=== PATIENT | male | born 1960 | race Caucasian/White ===

== ENCOUNTER → 2019-10-27 11:32 | Outpatient (BNVA) | payer MEDICARE, SELFPAY | PROVIDERS: Family Provider Nurse Practitioner; PCP Nurse Practitioner; Visit Provider Nurse Practitioner Family | DX: M41.87 Other forms of scoliosis, lumbosacral region (principal); J98.11 Atelectasis | CPT/HCPCS: 71046; 72100 ==

== ENCOUNTER → 2019-12-21 15:21 | Outpatient (BNVA) | payer MEDICARE, SELFPAY | PROVIDERS: Family Provider Nurse Practitioner; PCP Nurse Practitioner; Visit Provider Nurse Practitioner Family | DX: I10 Essential (primary) hypertension (principal); E78.5 Hyperlipidemia, unspecified; R60.0 Localized edema; K59.04 Chronic idiopathic constipation; E03.9 Hypothyroidism, unspecified; M19.90 Unspecified osteoarthritis, unspecified site; K21.9 Gastro-esophageal reflux disease without esophagitis | CPT/HCPCS: 80053; 80061; 84443; 85025 ==

== ENCOUNTER → 2020-01-04 11:29 | Outpatient (BNVA) | payer MEDICARE, SELFPAY | PROVIDERS: Family Provider Nurse Practitioner; PCP Nurse Practitioner; Referring Provider Nurse Practitioner Family; Visit Provider Internal Medicine Cardiovascular Disease | DX: R07.89 Other chest pain (principal); R06.02 Shortness of breath; I35.0 Nonrheumatic aortic (valve) stenosis; R60.0 Localized edema; I50.33 Acute on chronic diastolic (congestive) heart failure; E78.5 Hyperlipidemia, unspecified; E03.9 Hypothyroidism, unspecified; I63.89 Other cerebral infarction; I11.0 Hypertensive heart disease with heart failure | CPT/HCPCS: 80048; 83880 ==

== ENCOUNTER 2020-03-02 10:13 | Outpatient (CLI) | payer MEDICARE, SELFPAY ==
--- NOTE | 2020-03-02 10:23 | USCV_ITS ---
Jaime Tan Age: 59 Gender: M : 1960 Exam Date: 03/02/2020 11:05 Ordering Phys: Gerald Marrero MD ([email or web address]) Technologist: Joaquina Capellan Exam Location: [facility] [place] Indication: BP: / HR: 71 Rhythm: Sinus Technical Quality: Adequate MEASUREMENTS (Male / Female) Normal Values 2D ECHO LV Diastolic Diameter PLAX 6.0 cm 4.2 - 5.9 / 3.9 - 5.3 cm LV Systolic Diameter PLAX 4.4 cm LV Chamber Size 3.4 cm IVS Diastolic Thickness 1.3 cm 0.6 - 1.0 / 0.6 - 0.9 cm IVS Systolic Thickness 1.7 cm LVPW Diastolic Thickness 1.1 cm 0.6 - 1.0 / 0.6 - 0.9 cm LVPW Systolic Thickness 1.2 cm RV Chamber Size 2.6 cm LVOT Diameter 2.0 cm LV Ejection Fraction 2D Teich 51.4 % LV Ejection Fraction MOD 2C 50.4 % LV Ejection Fraction 2C AL 51.6 % LA Diameter 3.6 cm LA Width 2.7 cm LA Height 5.1 cm RA Width 3.3 cm RA Height 4.1 cm Aorta at Sinotubular Diameter 3.2 cm M-MODE LV Diastolic Diameter MM 6.0 cm 4.2 - 5.9 / 3.9 - 5.3 cm LV Systolic Diameter MM 3.9 cm LV Ejection Fraction MM Teich 63.3 % IVS Diastolic Thickness MM 1.3 cm 0.6 - 1.0 / 0.6 - 0.9 cm IVS Systolic Thickness MM 1.8 cm LVPW Diastolic Thickness MM 1.5 cm 0.6 - 1.0 / 0.6 - 0.9 cm LVPW Systolic Thickness MM 1.5 cm RV Diastolic Diameter MM 1.0 cm Aortic Annulus Diameter 3.5 cm LA Ao Ratio MM 1.0 MV E Point Septal Separation 0.8 cm DOPPLER AV Peak Velocity 132.0 cm/s LVOT Peak Velocity 70.0 cm/s AV Area Cont Eq vti 1.9 cm squared AV Area Cont Eq pk 1.7 cm squared MV Area PHT 4.9 cm squared Mitral E to A Ratio 1.1 MV E' Velocity 8.0 cm/s Mitral E to MV E' Ratio 11.1 Mitral E to LV E' Lateral Ratio 12.2 Mitral E to LV E' Septal Ratio 10.1 TV Peak E Velocity 70.0 cm/s PV Peak Velocity 53.0 cm/s RV Acceleration Time 0.1 s RV Ejection Time 0.3 s RV AcT/ET 0.3 FINDINGS Left Ventricle Normal left ventricular size and systolic function, EF 59 %. No regional wall motion abnormalities. Right Ventricle The right ventricle is normal in size and function. Right Atrium The right atrium is normal in size. Left Atrium The left atrium is normal in size. Mitral Valve No gross abnormalities noted Aortic Valve Thickened noncoronary cusp of the aortic valve Tricuspid Valve No gross abnormalities noted Pulmonic Valve Pulmonic valve not well visualized. Pericardium Normal pericardium without effusion. Aorta Normal ascending aorta dimension. CONCLUSIONS Normal left ventricular size and systolic function, EF 59 %. No regional wall motion abnormalities. Thickened noncoronary cusp of the aortic valve. Thickened noncoronary cusp of the aortic valve There is no pericardial effusion. No significant stenotic or ureteral lesions Technically difficult study because of the poor ultrasonic window. No previous study is available for comparison. Dr Gerald Marrero MD FACC (Electronically Signed) Final Date: 02 Mar 2020 14:22 S
--- NOTE | 2020-03-02 10:26 | NMCV_ITS ---
NM scar perf SPECT r/s* [id number] Jaime Tan Age: 59 Gender: M : 1960 Exam Date: 03/02/2020 10:26 Ordering Phys: Gerald Marrero MD ([email or web address]) Technologist: MAHTEUS Hinojosa Exam Location: [facility] Indications: Chest pain STRESS TEST Please [facility] for [facility] IMAGE PROTOCOL Rest/Stress 1 Lexiscan Day Radiopharmaceutical Dose (mCi) Administration Site Administered by Rest: Tc-99m 10.7 IV MATHEUS Hinojosa Sestamibi Stress:Tc-99m 32.9 IV MATHEUS Hinojosa Sestamibi Rest: 02-Mar-2020 60 Discovery 630 Stress: 02-Mar-2020 45 Discovery 630 0.4mg Lexiscan. Images obtained in supine and prone position. SPECT RESULTS Technical Quality: Good Raw Data Analysis: Subdiaphragmatic activity, Soft tissue attenuation Image Corrections: No attenuation or motion correction applied Summed Stress Score: 2 Summed Rest Score: 2 Summed Difference Score: 1 PERFUSION FINDINGS A small area of decreased tracer uptake was noted in the apical lateral region, with some reversibility FUNCTIONAL RESULTS (calculated via Gated SPECT) Stress Image LV EF (%): 40 Stress EDV (mL):131 TID: 1.09 Stress ESV (mL):79 FUNCTIONAL FINDINGS: Segmental wall motion has revealed diffuse hypokinesia of the left ventricle IMPRESSIONS 1. Myocardial perfusion imaging revealing a small area reversible defect in the apical lateral region, suggestive of ischemia in the distribution of the left circumflex artery. 2. Diminished LV ejection fraction of 40%. 3. Wall motion normality as mentioned above. 4. Mildly dilated LV cavity with an end-systolic volume of 79 mL. No similar previous studies are available for comparison Dr Gerald Marrero MD FAC (Electronically Signed) Final Date: 02 Mar 2020 15:20 S
--- NOTE | 2020-03-02 11:38 | ECG_ITS ---
NAME OF STUDY: LEXISCAN SESTAMIBI STRESS TEST INDICATION: Chest Pain; Shortness of Breath, PROCEDURE: At the baseline, the EKG revealed normal sinus rhythm with frequent PVCs. Some evidence of right ventricular conduction delay. Nonspecific T wave changes.. The baseline blood pressure was 124/81 mm Hg with a heart rate of 70 beats/min. Lexiscan was infused over a period of 20 seconds. A total of 0.4 milligrams of Lexiscan was infused. The stress phase was continued for a total of 5 minutes. Heart rate at the end of the stress phase was 88 with a blood pressure 145/83. The EKG at the peak infusion revealed no significant changes. Sestamibi was injected 20 seconds after the Lexiscan infusion. Blood pressure at the end of the recovery phase was 141/76 with a heart rate of 73 per minute. CONCLUSION: 1. No significant EKG changes with the LexiScan infusion 2. No LexiScan induced chest pain or cardiac arrhythmia 3. Normal blood pressure and heart rate response 4. Sestamibi/sestamibi perfusion scan pending; see separate report. Electronically Signed On 03-02-2020 14:13:14 CDT by Gerald Marrero M.D. [email or web address]
[2020-03-02 11:40] VITALS: BMI 38.7
--- NOTE | 2020-03-02 13:25 | SUR.PREOP ---
Patient reports no pain or discomfort prior to the start of the procedure.
[2020-03-02] MEDS: regadenoson 0.4 Mg/5 ml Syringe IVP (13:29)
[2020-03-02 13:33] VITALS: BP 146/80; PULSE 85
== END 2020-03-02 10:14 | disposition home or self-care (01) ==
PROVIDERS: Family Provider Nurse Practitioner; PCP Nurse Practitioner; Visit Provider Internal Medicine Cardiovascular Disease
DX: R06.02 Shortness of breath (principal); R07.89 Other chest pain; I35.0 Nonrheumatic aortic (valve) stenosis; R60.0 Localized edema; I35.8 Other nonrheumatic aortic valve disorders
CPT/HCPCS: 78452; 93017; 93306; A9500; J2785

== ENCOUNTER 2020-03-14 13:34 | Outpatient (CLI) | payer MEDICARE, SELFPAY ==
--- NOTE | 2020-03-14 13:30 | USCV_ITS ---
Dominick Jaime Age: 59 Gender: M : 1960 Exam Date: 03/14/2020 13:41 Ordering Phys: Gerald Marrero MD ([email or web address]) Technologist: Suly Mills Exam Location: [facility] [place] Indication: SWELLING HISTORY: Lower extremity swelling. PROCEDURES: Venous duplex imaging was performed in only the left lower extremity. The following venous structures were evaluated: common femoral vein, profunda vein, proximal portion of the greater saphenous vein, superficial femoral vein, and the popliteal vein. In addition, the posterior tibial and peroneal trunk were evaluated. Serial compression, augmentation maneuvers, and spectral Doppler flow evaluation were performed. FINDINGS: Normal 2-D Doppler and augmentation and compressibility throughout the lower extremity venous structures. Additional imaging through the proximal calf veins also reveals no thrombus. Limited evaluation of the greater saphenous vein is patent with no thrombus. CONCLUSIONS No DVT left lower extremity. Dr. Irma Kirby DO (Electronically Signed) Final Date: 14 Mar 2020 15:01 S
== END 2020-03-14 13:35 | disposition home or self-care (01) ==
LOC: RAD 13:44
PROVIDERS: PCP Nurse Practitioner; Visit Provider Internal Medicine Cardiovascular Disease
DX: M79.89 Other specified soft tissue disorders (principal); R35.0 Frequency of micturition; N52.9 Male erectile dysfunction, unspecified; F17.290 Nicotine dependence, other tobacco product, uncomplicated
CPT/HCPCS: 81001; 84153; 93971

== ENCOUNTER 2020-04-07 08:13 | Observation (INO) | payer MEDICARE, SELFPAY ==
[2020-04-07] VITALS (22 sets, daily range): BP systolic 121–165; BP diastolic 71–100; PULSE 55–81; RESP 15–31; TEMP 35.6–36.6; O2SAT 89–97; BMI 44.3
--- NOTE | 2020-04-07 06:00 | XACV_ITS ---
Exam Room: [facility] Ht: 178 cm Wt: 140 kg BSA: 2.70 m2 Gender: Male : 1960 Any Known Allergies: Other Exam Priority: Routine Procedure(s): Procedure Description: Diagnostic procedure Procedure Description: Left ventriculography Procedure Description: Coronary Angiography Diagnostic Cath Status: Elective Diagnostic Findings No significant disease noted in the Left Main, LAD, Circumflex, or RCA coronary arteries. Coronary angiography shows right dominance. The left main is a medium caliber short vessel with no significant stenotic lesions. The left anterior descending artery appears to be a medium caliber vessel which tapers off to his LV apex. Minimal intimal regularities are noted proximally. No significant stenotic lesions. The circumflex artery is a medium caliber vessel which gives off a small caliber high obtuse marginal branch. The second obtuse marginal artery is medium to large caliber vessel which was found to have diffuse tubular narrowing of around 30 to 40% proximally. No other significant stenotic lesions were noted. The intermedius artery is a medium caliber vessel which has an ostial around 30% narrowing. The right coronary artery is a medium to large caliber vessel with no significant stenotic lesions. PCI Status: Elective Conclusions The LV gram was performed the HOPKINS projection. The LV cavity appears to be of normal size. LV ejection fraction around 60%. No filling defects. No significant mitral valve prolapse or mitral regurgitation. This is a 54-year-old white male with history of hypertension, dyslipidemia, congestive heart failure, presented with episodes of chest pain. He had a myocardial perfusion imaging which revealed a small area of reversibility in the apical lateral region, suggestive of ischemia in the distribution of the circumflex artery. The area of ischemia was small, it was thought to be appropriate to try the medical treatment. Apparently the patient continued to have chest pain with increasing frequency. In view of the ongoing symptoms, in order to further evaluate the coronary status, a cardiac catheterization was recommended. Patient underwent left heart catheterization with a left and right coronary angiogram and LV angiogram today. The findings are as follows. 40 to 50% diffuse irregular narrowing in the proximal segment of the second obtuse marginal artery. Mild disease in the other vessels. Markedly elevated LVEDP. Based on the angiographic findings, it was decided to optimize medical treatment. Recommendations Continue current medical management and risk factor modification. Diagnostic RX Recommendation: medical therapy and/or counseling LV EDP: 27 mmHg Ejection Fraction: 60.0 % Left Ventriculography Findings: The LV gram was performed the HOPKINS projection. The LV cavity appears to be of normal size. LV ejection fraction around 60%. No filling defects. No significant mitral valve prolapse or mitral regurgitation. Pressures Phase:Rest AO : 115 mmHg / 70 mmHg ( 90 mmHg ) @ 2:38:00 AM 120 mmHg / 67 mmHg ( 91 mmHg ) @ 2:47:00 AM 123 mmHg / 69 mmHg ( 93 mmHg ) @ 2:47:00 AM LV : 129 mmHg / 0 mmHg / @ 2:46:00 AM 135 mmHg / 4 mmHg / @ 2:47:00 AM 133 mmHg / 5 mmHg / @ 2:47:00 AM 130 mmHg / 4 mmHg / @ 2:47:00 AM Valves Phase:DefaultPhase AV : 10.0 mmHg @ 1:43:20 PM AV Mean Gradient: 7.0 mmHg @ 1:43:20 PM Clinical Evaluation EBL: 5mL-10mL Procedural Details Procedure Consent Obtained. Pre-Procedure Time Out. Identified patient by full name and date of as verbalized by the patient/guarantor. Does the consent match the physician's order: Yes. Accurate & Complete Informed Consent: Yes. Inpatient/Outpatient History & Physical on Chart: Yes. If H&P is completed, is and addenduem needed: No; If yes, is the addendum complete: Yes. Visualize and Verify Site with Patient/Guarantor: N/A. Relevant Radiology Images available: Yes. Pre-op teaching completed and patient verbalized understanding. The risks, benefits, and alternatives of sedation and/or procedure were discussed by physician. The patient agrees to continue. Procedure started. Correct patient, site and procedure confirmed by cath team. Current diagnosis: Chest Pain. PERRLA. Strong, equal hand physician executive bilaterally. Lungs clear x 5 lobes. IV Site on Arrival: 20 gauge in the left forearm. IV Fluids: 0.9% NaCl at KVO. 0 mL infused prior to biological lab technician. Pre Procedural Pulses: bilateral dorsalis pedis was 1+. Pre Procedural Pulses: left posterior tibial was Doppled. Pre Procedural Pulses: right posterior tibial was 1+. Pre Procedural Pulses: bilateral radial was 2+. Oxygen started at 2liters/min via nasal canula. bilateral groins was prepped with chloroprep then draped in the usual sterile fashion. right radial was prepped with chloroprep then draped in the usual sterile fashion. Physician notified. Baseline sample Acquired. HR: 60 BPM. Equipment: 6F - Radial. Cardiac Cath Pack. ACIST Manifold Kit Model BT 2000. Heparinized Saline (2 units/mL), 1000 mL bag. Physician arrived. Physician scrubbed in. Immediate Pre-Procedure Time Out. Correct Patient: Yes; Correct Procedure: Yes; Correct Site: Yes; Correct Patient Position: Yes; Correct Supplies: Yes; Dried Flammable Prep: Yes; Blood Products Available: No;. Lidocaine 1% infiltrated to the right radial. Arterial access obtained. A 5 cymraes Dimitrios catheter in over wire. Multiple views taken of left coronary artery. Catheter redirected to the RCA. Multiple views taken of right coronary artery. Catheter out. A 6 cymraes Angled Pig catheter in over wire. EDP Sample taken: LV 129/0,27; HR: 66 BPM; SpO2: 92%. LV gram performed in HOPKINS @ 10 mL/second for a total of 30 mL. EDP Sample taken: LV 135/4,24; HR: 67 BPM; SpO2: 93%. Pullback taken: LV 130/4,28; AO 120/67(91); Mean: 7mmHg, Peak to Peak: 10mmHg, SEP: 19sec/min; HR: 66 BPM; SpO2: 93%. Catheter out. Dr. Marrero scrubbed out of procedure. [facility] Clinical Fraility Score: 4: Vulnerable. Manager Pet Indications: Suspected CAD. Chest Pain Symptom Assessment: Atypical Angina. Cardiovascular Instability: No. TR band placed. Hemostasis obtained. Post Procedure: Pulses reassessed and unchanged. PERRLA. Strong, equal hand physician executive bilaterally. No VTE prophylaxis required. Medication's Wasted: Lidocaine 1% = 18 mL. Medication's Wasted: Nitro = 49.8 mg. Medication's Wasted: Heparin = 1000 units mL. Total IV fluids: 38.6 mL. Post-op diagnosis: Moderate CAD. Complications: None. Estimated blood loss: 5mL-10mL. Procedure completed. Patient transferred by wheelchair to 1st floor. Vital chart was stopped. Site: Right Radial artery Sheath Size: 6 Fr Hemostasis Success: Unsuccessful Procedure Medications Start: 7:25 AM Stop: 7:25 AM Medication: Fentanyl Amount: 50 mcg Start: 7:25 AM Stop: 7:25 AM Medication: Versed Amount: 1 mg Route: I.V. Start: 7:34 AM Stop: 7:34 AM Medication: Versed Amount: 1 mg Route: I.V. Start: 7:34 AM Stop: 7:34 AM Medication: Fentanyl Amount: 50 mcg Start: 7:36 AM Stop: 7:36 AM Medication: Verapamil Amount: 5 mg Route: I.A. Start: 7:36 AM Stop: 7:36 AM Medication: Nitrogylcerin Amount: 200 mcg Route: I.A. Start: 7:38 AM Stop: 7:38 AM Medication: Heparin Amount: 5000 units Route: I.V. I, the attending physician, have reviewed and verified all procedure medications. Yes, all medications given per verbal order History/Risk Factors Hypertension: Yes Dyslipidemia: Yes Peripheral Arterial Disease (PAD): No Myocardial Infarction (AZ): No Obesity: Yes Tobacco Use: Current/Recent(w/in 1 year) Prior Interventions PCI: No CABG: No Valve Surgery: No Report Signatures Finalized by:Dr Gerald Marrero MD [facility] on 04/07/2020 2:27:54 PM
[2020-04-07] MEDS: diphenhydrAMINE 50 mg Capsule PO (06:52)
[2020-04-07 06:55] LABS: Basophils % 0.3 %; Eosinophils # 0.1 10^3/uL (0.0-0.8); Eosinophils % 1.5 %; Hematocrit 48.8 % (42.0-52.0); Hemoglobin 15.8 g/dL (11.7-16.6); Lymphocytes # 2.6 10^3/uL (0.8-4.8); Lymphocytes % 40.1 %; Mean Corpuscular HGB Conc 32.4 g/dL (30.0-36.0); Mean Corpuscular Hemoglobin 28.9 pg (28.0-34.0); Mean Corpuscular Volume 89.4 fL (80-94); Mean Platelet Volume 10.4 fL (7.4-10.4); Monocytes # 0.7 10^3/uL (0.2-0.9); Monocytes % 9.9 %; Neutrophils # 3.1 10^3/uL (1.8-7.7); Neutrophils % 47.9 %; Nucleated Red Blood Cells % 0 %; Platelet Count 204 10^3/cmm (130-400); Red Blood Count 5.46 10^6/uL (4.1-5.3); Red Cell Distribution Width 14.7 % (12.1-15.1); White Blood Count 6.6 10^3/uL (4.0-10.0)
[2020-04-07 07:07] LABS: Anion Gap 14.9 (5-19); Blood Urea Nitrogen 10 mg/dL (6-20); Calcium 9.5 mg/dL (8.5-10.5); Carbon Dioxide 30 mmol/L (22-29); Chloride 100 mmol/L (98-107); Glucose 101 mg/dL (65-115); Osmolality Calculated 288 mOsm/kg (285-295); Potassium 3.9 mmol/L (3.5-5.1); Sodium 141 mmol/L (136-145)
--- NOTE | 2020-04-07 07:29 | W.PM.OPSUD ---
Surgery/Procedure H&P Update DATE OF PROCEDURE: April 07, 2020 DATE H&P PERFORMED: 03/07/20 H&P UPDATE INFORMATION: I have reviewed H&P completed within last 30 days, I have examined patient prior to procedure and No changes to prior documentation PLANNED PROCEDURE: Operation Date: 04/07/20 07:00 Proposed Procedures p Cardiac Catheterization(Left) - Gerald Marrero MD PATIENT REASSESSED PRIOR TO SEDATION, WITH NO CHANGE NOTED: Yes PHYSICAL EXAM: alert, oriented x 3, clear to auscultation bilaterally and regular rate & rhythm AIRWAY EVAL/ANESTHESIA PLAN: normal airway, ASA II, Monitored Anesthesia, Local Anesthesia, Risks, benefits & alternatives of sedation and/or procedure discussed and Patient agrees to continue as planned
[2020-04-07] MEDS: sodium chloride 0.9% 1,000 ML 100 ML IV (08:26)
[2020-04-07] MEDS: potassium chloride ER 10 mEq Tablet 20 MEQ PO (08:29)
[2020-04-07] MEDS: FUROsemide 40 mg Tablet PO (08:29)
--- NOTE | 2020-04-07 08:56 | PC.NURSE ---
Patient arrived to floor at 0805. 2 nurse verification of insertion site. TR band intact, no oozing or hematoma noted. Radial pulse palpable, neurovascular checks appropriate at this time. see assessment. nurse to continue to monitor.
--- NOTE | 2020-04-07 09:43 | PC.CHAP ---
Pastoral Care Encounter/Spiritual Assessment Type of Contact [] Declined legal paraprofessional visit [] Patient/Family/Request visit [] Outpatient visit [] Follow-up visit [] Physician referral [] Code/Alert [x] Routine visit [] Staff referral [] Actively dying [] Patient sleeping [] Family support [] [] Out of room [] Palliative care [] [] Receiving care in room [] Pre-surgical visit [] Trauma [] Long length of stay [] ICU visit [] Other: Relational/Emotional Strength [] Patient feels connected with others/family/visitors/staff [] Distress [] Loneliness/isolation [] Abandonment Spirituality of Patient [] Person of Avis [] Attends Mu-Ism of their Avis [] Believes in Prayer [] Reads Bible or Restorationism materials [] There are Spiritual issues to be addressed Telesales Agent Interventions [x] Prayer [] Active listening [] Non-anxious presence [] Spiritual/emotional support [] Crisis/trauma care [] Spiritual counseling [] Bereavement support [] Provided bereavement packet [] Provided Bible/devotional materials [] Provided toy/stuffed animal, coloring book to patient or family member [] Provided Communion [] Anointing/Hunter [] Salvation [x] Completed spiritual assessment [] Other: Impact on Illness or Injury [] Angry [] Fearful [] Anxious [] Often cries [] Exhaustion [] Unable to work [] Unable to attend baptist [] Unable to walk/stand [] Unable to read [] Unable to drive [] Unable to eat/drink [] Unable to sleep [] Unable to be with family [] Patient intubated [] Other: Summary Delightful patient. Feeling stronger- looking forward to returning home. Time spent with patient 10 min
--- NOTE | 2020-04-07 12:17 | PC.NURSE ---
TR band off at 1215. 17 ml of air removed. Patient tolerated well. Incision asymptomatic, no oozing or hematoma noted. Dressing placed, CDI. Nurse to continue to monitor.
--- NOTE | 2020-04-07 12:57 | PC.NURSE ---
Discharge instructions given per the physician's orders. Patient verbalized understanding and did not have any further questions. Patient verbalized understanding of post angiogram home instructions and understanding of the importance of smoking cessation. has been contacted for transportation.
== END 2020-04-07 12:55 | disposition home or self-care (01) ==
LOC: CSU 08:13
PROVIDERS: Admitting Provider Internal Medicine Cardiovascular Disease; PCP Nurse Practitioner Family; Visit Provider Internal Medicine Cardiovascular Disease
DX: R07.89 Other chest pain (principal); E78.5 Hyperlipidemia, unspecified; I11.0 Hypertensive heart disease with heart failure; I50.32 Chronic diastolic (congestive) heart failure; M79.89 Other specified soft tissue disorders; R94.39 Abnormal result of other cardiovascular function study; Z79.82 Long term (current) use of aspirin
CPT/HCPCS: 12345; 36415; 80048; 85025; 93452; C1769; C1887; C1894; G0378; J1644; J2001; J2250; J3010; J3490; J7030; Q0163; Q9967

== ENCOUNTER → 2020-05-01 12:30 | Outpatient (BNVA) | payer MEDICARE, SELFPAY | PROVIDERS: PCP Nurse Practitioner Family; Visit Provider Nurse Practitioner Family | DX: I25.10 Atherosclerotic heart disease of native coronary artery without angina pectoris (principal); R94.39 Abnormal result of other cardiovascular function study | CPT/HCPCS: 80048 ==

== ENCOUNTER → 2020-05-19 11:10 | Outpatient (BNVA) | payer MEDICARE, SELFPAY | PROVIDERS: PCP Nurse Practitioner Family; Visit Provider Nurse Practitioner Family | DX: E78.5 Hyperlipidemia, unspecified (principal); E03.9 Hypothyroidism, unspecified; J44.9 Chronic obstructive pulmonary disease, unspecified; M79.2 Neuralgia and neuritis, unspecified; K59.04 Chronic idiopathic constipation; K21.9 Gastro-esophageal reflux disease without esophagitis; M19.90 Unspecified osteoarthritis, unspecified site; R60.0 Localized edema; I10 Essential (primary) hypertension; M05.9 Rheumatoid arthritis with rheumatoid factor, unspecified | CPT/HCPCS: 80053; 80061; 84443; 85025 ==

== ENCOUNTER 2020-06-28 12:44 | Outpatient (CLI) | payer MEDICARE, SELFPAY ==
--- NOTE | 2020-06-28 12:53 | US_ITS ---
WS: [id number] INDICATION: Soft tissue ultrasound TECHNIQUE: Ultrasound soft tissue area of concern FINDINGS: Ultrasound soft tissue area of concern superior chest. Echogenic subcutaneous lesions consi stent with small lipomas. These measure approximately 3.0 x 1.2 x 2.8 cm and 1.1 x 0.6 x 0.9 CM. US/US soft tissue/extremity [id number] IMPRESSION: Echogenic lipomas described above
== END 2020-06-28 12:45 | disposition home or self-care (01) ==
LOC: RAD 12:51
PROVIDERS: PCP Nurse Practitioner Family; Visit Provider Physician Assistant
DX: D48.5 Neoplasm of uncertain behavior of skin (principal)
CPT/HCPCS: 76882

== ENCOUNTER → 2020-07-26 14:36 | Outpatient (BNVA) | payer MEDICARE, SELFPAY | PROVIDERS: PCP Nurse Practitioner Family; Visit Provider Nurse Practitioner Family | DX: I45.10 Unspecified right bundle-branch block (principal); I10 Essential (primary) hypertension | CPT/HCPCS: 80053; 84484; 85025 ==

== ENCOUNTER → 2020-08-15 09:26 | Outpatient (BNVA) | payer MEDICARE, SELFPAY | PROVIDERS: PCP Nurse Practitioner Family; Visit Provider Nurse Practitioner Family | DX: Z11.59 Encounter for screening for other viral diseases (principal); Z20.828 Contact with and (suspected) exposure to other viral communicable diseases; J06.9 Acute upper respiratory infection, unspecified | CPT/HCPCS: 87635 ==

== ENCOUNTER → 2020-08-21 15:34 | Outpatient (BNVA) | payer MEDICARE, SELFPAY | PROVIDERS: PCP Nurse Practitioner Family; Visit Provider Nurse Practitioner Family | DX: Z11.59 Encounter for screening for other viral diseases (principal) | CPT/HCPCS: 87635 ==

== ENCOUNTER → 2020-09-27 13:46 | Outpatient (BNVA) | payer MEDICARE, SELFPAY | PROVIDERS: PCP Nurse Practitioner Family; Visit Provider Nurse Practitioner Family | DX: R30.0 Dysuria (principal) | CPT/HCPCS: 81000 ==

== ENCOUNTER 2020-10-11 11:54 | Outpatient (CLI) | payer MEDICARE, SELFPAY ==
--- NOTE | 2020-10-11 11:45 | US_ITS ---
WS: [id number] ULTRASOUND SOFT TISSUES abdominal wall. HISTORY: D17.9 - Benign lipomatous neoplasm, unspecified COMPARISON: 06/28/2020. TECHNIQUE: 2-D and color Doppler imaging is submitted. Complex semisolid collection in the LEFT abdomen at the epigastric level. This corresponds with posts urgical cavity which may be resolving hematoma or seroma. No increased vascularity. This collection m easures 2.2 cm in length. May also be a resolving abscess. There are several small lipomas over the RIGHT thorax as directed by the patient. These are of increa sed echogenicity compared to the adjacent soft tissues. The largest to the RIGHT of the midline measu res 2.2 x 1.8 x 1.8 cm. US/US soft tissue/extremity [id number] IMPRESSION: 1. Soft tissue lipomas over the anterior chest and upper abdominal arevalo. 2. Resolving postoperative cavity to the LEFT of the epigastric region. Probab ly resolving hematoma or seroma. There is no increased vascularity to suggest a bscess at this time.
== END 2020-10-11 11:55 | disposition home or self-care (01) ==
LOC: US 11:58
PROVIDERS: PCP Nurse Practitioner Family; Visit Provider Nurse Practitioner Family
DX: D17.9 Benign lipomatous neoplasm, unspecified (principal)
CPT/HCPCS: 76882

== ENCOUNTER → 2020-11-06 10:53 | Outpatient (BNVA) | payer MEDICARE, SELFPAY | PROVIDERS: PCP Nurse Practitioner Family; Visit Provider Nurse Practitioner Family | DX: Z20.828 Contact with and (suspected) exposure to other viral communicable diseases (principal) | CPT/HCPCS: 87635 ==

== ENCOUNTER → 2020-11-14 10:19 | Outpatient (BNVA) | payer MEDICARE, SELFPAY | PROVIDERS: PCP Nurse Practitioner Family; Visit Provider Nurse Practitioner Family | DX: Z20.822 Contact with and (suspected) exposure to COVID-19 (principal); R50.9 Fever, unspecified | CPT/HCPCS: 85025; 87635 ==

== ENCOUNTER 2020-12-18 11:12 | Outpatient (CLI) | payer MEDICARE, SELFPAY ==
--- NOTE | 2020-12-18 11:17 | CT_ITS ---
WS: [id number] LDCT LUNG CANCER SCREENING HISTORY: NICOTINE Dependence, cigarettes TECHNIQUE: Axial imaging performed from the apices to 1 cm below the costophrenic angles. Coronal and sagittal reformats are submitted with axial MIP series. All CT scans at [facility] use at least one of these dose optimization techniques: automated exposure control; mA and/or kV adjustment per patient size (includes targeted exams where dose is matched to clinical indication); or iterativ e reconstruction. DLP: 65.27 mGy.cm DIvol: 1.58 mGy COMPARISON: None available. Diagnostic quality: Satisfactory Lung Nodules: 4 mm nodule medial RIGHT upper lobe, image 111 series 4. Additional 7 mm nodule, image 117 of series 4 along the minor fissure. Benign granuloma at the RIGHT lung base. Lungs: A control operator lungs. There is bilateral interstitial thickening and reticulations from fibrotic disease. Heart: Normal size. No pericardial effusion. Other findings: No adenopathy. There are small benign mediastinal and hilar lymph nodes. Upper abdome n is extremely limited due to body habitus. CT/CT lung screening [id number] IMPRESSION: LUNG-RADS: 2-Benign Appearance or Behavior FOLLOW UP: 12 Month: Continue annual screening with LDCT OTHER FINDINGS (S MODIFIER): None.
== END 2020-12-18 11:13 | disposition home or self-care (01) ==
LOC: RAD 11:15
PROVIDERS: PCP Nurse Practitioner Family; Visit Provider Internal Medicine Critical Care Medicine
DX: Z12.2 Encounter for screening for malignant neoplasm of respiratory organs (principal); F17.210 Nicotine dependence, cigarettes, uncomplicated
CPT/HCPCS: 71271

== ENCOUNTER → 2020-12-27 09:58 | Outpatient (BNVA) | payer MEDICARE, SELFPAY | PROVIDERS: PCP Nurse Practitioner Family; Visit Provider Nurse Practitioner Family | DX: J44.9 Chronic obstructive pulmonary disease, unspecified (principal); E03.9 Hypothyroidism, unspecified; Z20.822 Contact with and (suspected) exposure to COVID-19; E78.5 Hyperlipidemia, unspecified; I10 Essential (primary) hypertension; M79.2 Neuralgia and neuritis, unspecified; K59.04 Chronic idiopathic constipation; M19.90 Unspecified osteoarthritis, unspecified site; K21.9 Gastro-esophageal reflux disease without esophagitis; I25.10 Atherosclerotic heart disease of native coronary artery without angina pectoris; R60.0 Localized edema; R39.9 Unspecified symptoms and signs involving the genitourinary system; M05.9 Rheumatoid arthritis with rheumatoid factor, unspecified | CPT/HCPCS: 80053; 80061; 84443; 85025; 87635 ==

== ENCOUNTER 2020-12-29 09:49 | Outpatient (CLI) | payer MEDICARE, SELFPAY ==
--- NOTE | 2020-12-29 10:08 | FL_ITS ---
WS: [id number] DOUBLE CONTRAST UPPER GI EXAMINATION HISTORY: R13.10 - Dysphagia, unspecified COMPARISON: None available. FLUOROSCOPY TIME: 2.6 minutes. Quality of examination is limited by body habitus. Barium mixture traversed normally throughout the esophagus. No filling defects within the stomach. Du odenal bulb was normally distensible and pliable. No gastroesophageal reflux Small reducible hiatal hernia. FL/FL upper GI w air* [id number] IMPRESSION: Small reducible hiatal hernia. Otherwise negative.
== END 2020-12-29 09:50 | disposition home or self-care (01) ==
LOC: RADWPI 09:53
PROVIDERS: PCP Nurse Practitioner Family; Visit Provider Surgery
DX: R13.10 Dysphagia, unspecified (principal); K44.9 Diaphragmatic hernia without obstruction or gangrene
CPT/HCPCS: 74246

== ENCOUNTER 2021-01-01 11:14 | Outpatient (CLI) | payer MEDICARE, SELFPAY ==
--- NOTE | 2021-01-01 11:45 | PFTS_ITS ---
Date of Study:01/01/21 Date of Dictation: 01/01/2021 MECHANICS: Forced vital capacity (FVC) is normal. Forced expiratory volume in one second (FEV1) is mildly reduced 74% FEV1/FVC is reduced Postbronchodilator study not performed. FLOW VOLUME LOOP: Artifacts due to possible cough during maneuver . LUNG VOLUMES: Total lung capacity (TLC) is normal. Residual volume (RV) is increased 134% suggestive of mild air trapping DIFFUSING CAPACITY FOR CARBON MONOXIDE: Mildly reduced 66% . INTERPRETATION: The spirometry suggestive of obstructive ventilatory defect with mild air trapping on lung volumes. Mild reduction in gas transfer. Please correlate clinically. MTDD
== END 2021-01-01 11:15 | disposition home or self-care (01) ==
LOC: RT 11:15
PROVIDERS: PCP Nurse Practitioner Family; Visit Provider Internal Medicine Critical Care Medicine
DX: J44.9 Chronic obstructive pulmonary disease, unspecified (principal)
CPT/HCPCS: 94010; 94726; 94729

== ENCOUNTER → 2021-01-04 10:02 | Outpatient (BNVA) | payer MEDICARE, SELFPAY | PROVIDERS: PCP Nurse Practitioner Family; Visit Provider Internal Medicine Rheumatology | DX: M05.79 Rheumatoid arthritis with rheumatoid factor of multiple sites without organ or systems involvement (principal); Z79.899 Other long term (current) drug therapy; Z11.59 Encounter for screening for other viral diseases; Z11.1 Encounter for screening for respiratory tuberculosis; I50.30 Unspecified diastolic (congestive) heart failure; F17.290 Nicotine dependence, other tobacco product, uncomplicated | CPT/HCPCS: 99204 ==

== ENCOUNTER → 2021-01-24 14:56 | Outpatient (BNVA) | payer MEDICARE, SELFPAY | PROVIDERS: PCP Nurse Practitioner Family; Visit Provider Internal Medicine Cardiovascular Disease | DX: M79.89 Other specified soft tissue disorders (principal); R07.89 Other chest pain; I50.32 Chronic diastolic (congestive) heart failure; R94.39 Abnormal result of other cardiovascular function study; R07.9 Chest pain, unspecified; R06.02 Shortness of breath | CPT/HCPCS: 80048; 83880 ==

== ENCOUNTER → 2021-03-12 13:17 | Outpatient (BNVA) | payer MEDICARE, SELFPAY | PROVIDERS: PCP Nurse Practitioner Family; Visit Provider Internal Medicine Rheumatology | DX: M05.79 Rheumatoid arthritis with rheumatoid factor of multiple sites without organ or systems involvement (principal); Z79.899 Other long term (current) drug therapy; I50.30 Unspecified diastolic (congestive) heart failure; Z11.1 Encounter for screening for respiratory tuberculosis; F17.210 Nicotine dependence, cigarettes, uncomplicated | CPT/HCPCS: 99214 ==

== ENCOUNTER → 2021-03-30 16:06 | Outpatient (BNVA) | payer MEDICARE, SELFPAY | PROVIDERS: PCP Nurse Practitioner Family; Visit Provider Surgery | DX: Z20.822 Contact with and (suspected) exposure to COVID-19 (principal); K21.9 Gastro-esophageal reflux disease without esophagitis | CPT/HCPCS: 87635 ==

== ENCOUNTER 2021-04-04 08:37 | Day surgery (SDC) | payer MEDICARE, SELFPAY ==
[2021-04-02 09:47] VITALS: BMI 40.1
--- NOTE | 2021-04-04 09:09 | ANES.PREANE2 ---
Pre-Anesthetic Assessment Pre-Anesthetic Assessment: Height/Weight: Height 1.78 m Weight 127.006 kg Proposed Procedure: Operation Date: 04/04/21 10:00 Proposed Procedures p EGD/colon [id number] K21.9 Z86.010(Not Applicable) - Toni Romero MD s Colonoscopy(Not Applicable) - Toni Romero MD Was Beta Ana M taken within 24 hours: N/A Was Clonidine taken within 24 hours: N/A Social: Social History: Tobacco and No alcohol Exam: Pre-Anes Outpt Exam: alert, oriented x 3 and regular rate & rhythm Airway: Submandibular: WNL Cervical ROM: WNL MP: 2 Additional comments: missing several Pulmonary: Pulmonary: COPD and Sleep apnea CV/HEM: CV/HEM: CAD, CHF and HTN GI: GI: GERD Metabolic: Metabolic: Morbid obesity and Thyroid Musc/skel: Musc/skel: RA and Weakness Neuropsych: Neuropsych: CVA Anesthetic Plan: ASA status: 3 Anesthesia: MAC Risk of > 500 ml blood loss (7ml/kg in children): No PFSH Anesthesia PFSH: Medical History (Updated 03/12/21 @ 14:11 by Mnany Williamson MD) Abnormal nuclear stress test Acquired hypothyroidism Atypical chest pain Bilateral lower extremity edema Chronic diastolic (congestive) heart failure Chronic idiopathic constipation Chronic osteoarthritis COPD (chronic obstructive pulmonary disease) COPD exacerbation Coronary artery disease COVID-19 vaccine administered CVA (cerebral vascular accident) in 2006- has numbness of the ulnar region of the right hand Dyslipidemia Erectile dysfunction Essential hypertension Fibroid tumor GERD (gastroesophageal reflux disease) High risk medication use Immunization counseling Incomplete right bundle branch block Left leg swelling Neuropathic pain Rheumatoid arthritis Seropositive rheumatoid arthritis of multiple sites Surgical History (Updated 03/12/21 @ 14:11 by Manny Williamson MD) History of cataract surgery History of colonoscopy with polypectomy (~2018) History of tonsillectomy and adenoidectomy Family History Brother Anesthesia complication Mother CAD (coronary artery disease) Chronic kidney disease (CKD) Father CAD (coronary artery disease) Cancer Dementia Diabetes Grandmother Rheumatoid arthritis Other Hyperlipidemia Hypertension Denies family history of Lupus Clotting disorder Suicide Bleeding disorder Family history of premature coronary artery disease Lung disease Stroke Social History Smoking and tobacco status: current every day smoker cigars Years smoked cigars: 40 Cigar details: 100 a week Smoking risk assessment/counseling performed?: Yes Alcohol intake: never Counseling given: No Counseling given: No Lives independently: Yes Household members: spouse Housing: House Marital status: Current occupational status: disabled History of recent travel: No Current gender identity: Male Data Anesthesia Cardiac Studies: No Data to Display
[2021-04-04 09:18] VITALS: BP 130/81; PULSE 73; RESP 18; TEMP 36.9; O2SAT 97
[2021-04-04] MEDS: sodium chloride 0.9% 1,000 ML 30 ML IV (09:58)
--- NOTE | 2021-04-04 10:19 | W.PM.OPSFHP ---
Same Day Surgery H&P Indication for Procedure/HPI DATE OF PROCEDURE: April 04, 2021 CHIEF COMPLAINT/INDICATIONFOR SURGICAL PROCEDURE: Acid reflux associated/colon polyps PREOP DIAGNOSIS: Acid reflux associated with morbid obesity and colon polyps PLANNED PROCEDRUE: Operation Date: 04/04/21 10:00 Proposed Procedures p EGD/colon [id number] K21.9 Z86.010(Not Applicable) - Toni Romero MD s Colonoscopy(Not Applicable) - Toni Romero MD Patient comes today and unfortunately gained about 10 pounds, has been having some family issues and appears that his father is sick. And patient is planning to move to [place]. He had to reschedule his EGD and colonoscopy. Patient continues to struggle with his morbid obesity and associated multiple medical comorbidities and continues to show interest in weight loss surgery. Interim history 04/04/2021 Patient comes today for diagnostic EGD and surveillance colonoscopy ROS All systems have been reviewed negative except as per the above or per problem list Medications/Allergies* Home Medications Medication Instructions Recorded Confirmed Type aspirin 325 mg tablet 325 mg PO DAILY 12/21/19 04/04/21 History fluticasone propionate 50 2 spray INTRANASAL DAILY 12/21/19 04/04/21 History mcg/actuation nasal spray,suspension dxxwdyqijtih-ckt-pauvh acid-vit 1 tab PO DAILY 11/22/20 04/04/21 History K-lycop 400 mcg-20 mcg-370 mcg tablet omega-3 fatty acids 500 mg capsule 500 mg PO DAILY 01/18/21 04/04/21 History Allergies/Adverse Reactions Allergy/AdvReac Type Severity Reaction Status Date / Time Tetanus Vaccines and Toxoid Allergy Unknown unknown Verified 04/04/21 10:20 codeine Allergy adverse Verified 04/04/21 10:20 reaction marijuana Allergy ALGY-Anaphy Verified 04/04/21 10:20 laxis paroxetine [From Paxil] Allergy adverse Verified 04/04/21 10:20 reaction Penicillins Allergy adverse Verified 04/04/21 10:20 reaction pollen extracts Allergy adverse Verified 04/04/21 10:20 reaction tramadol [From Ultram] Allergy adverse Verified 04/04/21 10:20 reaction methotrexate AdvReac Intermediate hair loss Verified 04/04/21 10:20 and ED Current Medications: Generic Name Dose Route Start Last Admin Trade Name Freq PRN Reason Stop Dose Admin Sodium Chloride 1,000 mls @ 30 mls/hr 04/04/21 09:15 04/04/21 09:58 Sodium Chloride 0.9% IV 04/05/21 09:14 30 mls/hr .Q24H AYUSH Administration Pertinent History/Comorbid Conditions* Medical History (Updated 03/12/21 @ 14:11 by Manny Williamson MD) Abnormal nuclear stress test Acquired hypothyroidism Atypical chest pain Bilateral lower extremity edema Chronic diastolic (congestive) heart failure Chronic idiopathic constipation Chronic osteoarthritis COPD (chronic obstructive pulmonary disease) COPD exacerbation Coronary artery disease COVID-19 vaccine administered CVA (cerebral vascular accident) in 2007- has numbness of the ulnar region of the right hand Dyslipidemia Erectile dysfunction Essential hypertension Fibroid tumor GERD (gastroesophageal reflux disease) High risk medication use Immunization counseling Incomplete right bundle branch block Left leg swelling Neuropathic pain Rheumatoid arthritis Seropositive rheumatoid arthritis of multiple sites Surgical History (Updated 03/12/21 @ 14:11 by Manny Williamson MD) History of cataract surgery History of colonoscopy with polypectomy (~2018) History of tonsillectomy and adenoidectomy Family History (Updated 01/24/21 @ 14:14 by Mago Werner RN) Rheumatoid arthritis Grandmother Diabetes Father CAD (coronary artery disease) Mother Father Dementia Father Hyperlipidemia Chronic kidney disease (CKD) Mother Anesthesia complication Brother Cancer Father Hypertension Denies family history of Lupus Clotting disorder Suicide Bleeding disorder Family history of premature coronary artery disease Lung disease Stroke Social History Smoking and tobacco status: current every day smoker cigars Years smoked cigars: 40 Cigar details: 100 a week Smoking risk assessment/counseling performed?: Yes Alcohol intake: never Counseling given: No Counseling given: No Lives independently: Yes Household members: spouse Housing: House Marital status: Current occupational status: disabled History of recent travel: No Current gender identity: Male Pertinent Exam Findings alert, oriented x 3, clear to auscultation bilaterally, regular rate & rhythm and procedure specific exam findings (Abdominal examination nontender nondistended soft morbidly obese) Recommendations Surgery/Procedure today (EGD and colonoscopy with possible biopsy) Other Plans: Plan of care; After thorough history and physical examination and reviewing the chart, plan to perform a diagnostic esophagogastroduodenoscopy and surveillance colonoscopy with possible biopsy and possible polypectomy. I discussed with the patient in detail the risks,benefits,alternatives and indications.The risk of aspiration, bleeding, soft tissue injury, perforation of the stomach/esophagus/colon and other potential concomitant complications were explained to the patient in details also the potential need for Thoracotomy and or Laproscoy/Laparotomy to repair any related complications including but not limited to colectomy and or Closotomy. The patient understood this well and did agree to proceed. Rationale was carefully and clearly discussed with the patient.Appropriate informed consent have been reviewed and signed Verbal and written Instructions were given to the patient for colonoscopy prep Coding Level of Care Code Acute Implementation Project Manager for Alena Blackburn
[2021-04-04 11:28] VITALS: BP 106/67; PULSE 80; RESP 16; TEMP 37.2; O2SAT 96
[2021-04-04 11:40] VITALS: BP 165/94; PULSE 72; RESP 18; TEMP 36.3; O2SAT 96
--- NOTE | 2021-04-04 13:58 | ANE.PACU2 ---
Inpatient post-anesthesia follow up: Airway intact: Yes Vital signs: Temperature 97.4 F Pulse Rate 72 Respiratory Rate 18 Blood Pressure 165/94 Pulse Oximetry 96 Oxygen Delivery Me thod Room Air Oxygen Flow Rate Fraction of Inspir ed Oxygen Hydration adequate: Yes Nausea and vomiting: No Pain level: 1 Mental status: Baseline
[2021-04-05 06:31] LABS: H. Pylori / CLO Test Negative
== END 2021-04-04 12:00 | disposition home or self-care (01) ==
PROVIDERS: PCP Nurse Practitioner Family; Visit Provider Surgery
PROC: 0DJ08ZZ Inspection of Upper Intestinal Tract, Via Natural or Artificial Opening Endoscopic (ICD-10-PCS; CPT 43235; principal; 2021-04-04 10:00)
PROC: 0DJD8ZZ Inspection of Lower Intestinal Tract, Via Natural or Artificial Opening Endoscopic (ICD-10-PCS; CPT 45378; 2021-04-04 10:00)
DX: Z86.010 Personal history of colon polyps (principal); K29.70 Gastritis, unspecified, without bleeding; K25.9 Gastric ulcer, unspecified as acute or chronic, without hemorrhage or perforation; K21.9 Gastro-esophageal reflux disease without esophagitis; E66.01 Morbid (severe) obesity due to excess calories; Z68.41 Body mass index [BMI] 40.0-44.9, adult; Z79.82 Long term (current) use of aspirin; E03.9 Hypothyroidism, unspecified; J44.9 Chronic obstructive pulmonary disease, unspecified; I11.0 Hypertensive heart disease with heart failure; I50.32 Chronic diastolic (congestive) heart failure; I25.10 Atherosclerotic heart disease of native coronary artery without angina pectoris; Z86.73 Personal history of transient ischemic attack (TIA), and cerebral infarction without residual deficits; E78.5 Hyperlipidemia, unspecified
CPT/HCPCS: 43239; 45378; 87077; 96360; 96361; J2704; J7030

== ENCOUNTER → 2021-05-04 08:49 | Outpatient (BNVA) | payer MEDICARE, SELFPAY | PROVIDERS: PCP Nurse Practitioner Family; Visit Provider Nurse Practitioner Family | DX: E03.9 Hypothyroidism, unspecified (principal); E78.5 Hyperlipidemia, unspecified; I10 Essential (primary) hypertension; R39.9 Unspecified symptoms and signs involving the genitourinary system; K59.04 Chronic idiopathic constipation; I25.10 Atherosclerotic heart disease of native coronary artery without angina pectoris | CPT/HCPCS: 80053; 80061; 83721; 84443; 85025 ==

== ENCOUNTER → 2021-05-16 11:44 | Outpatient (BNVA) | payer MEDICARE, SELFPAY | PROVIDERS: PCP Nurse Practitioner Family; Visit Provider Internal Medicine Cardiovascular Disease | DX: R74.8 Abnormal levels of other serum enzymes (principal); M79.89 Other specified soft tissue disorders; R07.89 Other chest pain; I50.33 Acute on chronic diastolic (congestive) heart failure | CPT/HCPCS: 80048; 83880 ==

== ENCOUNTER → 2021-07-03 11:15 | Outpatient (BNVA) | payer MEDICARE, SELFPAY | PROVIDERS: PCP Nurse Practitioner Family; Visit Provider Internal Medicine Cardiovascular Disease | DX: I25.10 Atherosclerotic heart disease of native coronary artery without angina pectoris (principal); I50.30 Unspecified diastolic (congestive) heart failure; I50.32 Chronic diastolic (congestive) heart failure; R60.0 Localized edema; R07.89 Other chest pain; M79.89 Other specified soft tissue disorders | CPT/HCPCS: 83880 ==